=== PATIENT | male | born 1970 | race Caucasian/White ===

== ENCOUNTER 2024-09-13 07:52 | Outpatient (CLI) | payer OTHER, SELFPAY ==
--- OUTSIDE RECORDS SUMMARY | 2024-09-13 07:56 | XMS_ITS | Clinical Summary ---
Author Organization [facility] Address [address] [place] [address] Care Team Providers Care Chauffeur [place] Limousine Name Role Phone None, Provider MD Primary Care Provider Unavaila ble Allergies No known active allergies Medications guaiFENesin ER (MUCINEX) 600 MG 12 hr tablet Take 2 tablets (1,200 mg total) by mouth 2 (two) times daily. 28 tablet 06/01/2024 Active Active Problems No known active problems Immunizations Immunization Administration Dates Next Due MODERNA COVID-19 (12+) MRNA, LNP-S, PF, 100 MCG/ 0.5 ML DOSE 05/29/2020,05/01/2020 Social History Tobacco Use Types Packs/Day Years Used Date Smoking Tobacco: Never Smokeless Tobacco: Never Tobacco Cessation:Counseling Given: Not Answered Alcohol Use Standard Drinks/Week Comments Never 0 (1 standard drink = 0.6 oz pur e alcohol) Sex and Gender Information Value Date Recorded Sex Assigned at Male 06/01/2024 9:16 AM BOOK TRIMMER Legal Sex Male 5:45 PM CDT Gender Identity Not on file Sexual Orientation Not on file Last Filed Vital Signs Vital Sign Reading Time Taken Comments Blood Pressure 121/73 06/01/2024 9:27 AM BOOK TRIMMER Pulse 97 06/01/2024 9:27 AM BOOK TRIMMER Temperature 37.7 C (99.8 F) 06/01/2024 9:27 AM BOOK TRIMMER Respiratory Rate 20 06/01/2024 9:27 AM BOOK TRIMMER Oxygen Saturation 100% 06/01/2024 9:27 AM BOOK TRIMMER Inhaled Oxygen Concentration - - Weight 104.3 kg (230 lb) 06/01/2024 9:27 AM BOOK TRIMMER Height 182.9 cm (6') 06/01/2024 9:27 AM BOOK TRIMMER Body Mass Index 31.19 06/01/2024 9:27 AM BOOK TRIMMER Plan of Treatment Health Maintenance Due Date Last Done Comments Colorectal Cancer Screening Colonoscopy (10 Years) 1968 Annual Physical 1971 Hepatitis C 1986 Hepatitis B Vaccines (1 of 3 - 19+ 3-dose series) 1987 Pneumococcal Vaccine: 50+ Years (1 of 1 - PCV) 2018 Zoster Vaccines (2 of 3) 07/24/2020 021, 05/01/2020, 04/26/2020, Additional history exists COVID-19 Vaccine (3 - 2023- season) 2023 05/29/2020, 05/01/2020 DTaP, Tdap and Td Vaccines (3 - Td or Tdap) 04/25/2030 04/25/2020, 07/03/2018 Meningococcal B Vaccine Aged Out No l onger eligible based on patient's age to complete this topic Meningococcal Vaccine Aged Out No clary laurie eligible based on patient's age to complete this topic RSV Immunizations Under 20 Months Aged Out No longer eligible based on patient's age to complete this topic Insurance [facility] Care Teams Chauffeur [employer] Limousine Relationship Specialty Start Date End Date None, Provider, PCP - General 12/27/20
--- OUTSIDE RECORDS SUMMARY | 2024-09-13 07:56 | XMS_ITS | Clinical Summary ---
Author Organization [facility] Address [facility] [place] [address] Care Team Providers Care Sales Engineer Name Role Phone Regan Mina Unavailable [phone] Regan Mina Primary Care Provider Allergies Active Allergy Reactions Criticality Noted Date Comments Shellfish Containing Products Hives,Swelling Medium Medications oxyCODONE (ROXICODONE) 5 mg immediate release tabletIndicatio ns:Pain Take 1-2 tablets (5-10 mg total) by mouth every 4 (four) hours as needed for pain 50 tablet 4 Active Additional Information Patient not taking.Reported on 07/31/2023 naloxone (NARCAN) 4 mg/actuation spray,non-aeros ol Administer 1 spray into affected nostril(s) as needed for opioid reversal or respiratory depression Call 911. Administer a single spray in one nostril. Repeat every 3 minutes as needed if no or minimal response. 1 each 4 Active Additional Information Patient not taking.Reported on 05/19/2023 traMADoL (ULTRAM) 50 mg tablet Take 1 tablet (50 mg total) by mouth every 6 (six) hours as needed for pain 50 tablet 4 Active Additional Information Patient not taking.Reported on 05/19/2023 HYDROcodone-jacinto taminophen (NORCO) 7.5-325 mg per tabletIndicatio ns:Pain Take 1-2 tablets every 6 hours as needed for pain 60 tablet 4 Active Additional Information Patient not taking.Reported on 06/19/2023 meloxicam (MOBIC) 15 mg tabletIndicatio ns:Chronic left shoulder pain TAKE 1 TABLET (15 MG TOTAL) BY MOUTH DAILY. 30 tablet 1 4 Active Additional Information Patient not taking.Reported on 06/19/2023 HYDROcodone-jacinto taminophen (NORCO) 5-325 mg per tabletIndicatio ns:Pain Take 1 tablets every 8 hours as needed for pain 40 tablet 4 Active Additional Information Patient not taking.Reported on 07/31/2023 HYDROcodone-jacinto taminophen (NORCO) 5-325 mg per tabletIndicatio ns:Pain Take 1 tablets every 6 hours as needed for pain 30 tablet 4 Active Additional Information Patient not taking.Reported on 09/03/2023 methylPREDNISol one (Medrol, Alessandro,) 4 mg Dosepack Take as directed on package 1 packet 4 Active Active Problems Problem Noted Date Diagnosed Date Left hand pain 02/29/2024 Chronic left shoulder pain 04/13/2023 Nontraumatic incomplete tear of left rotator cuf f 04/13/2023 Liver lesion 06/26/2022 Assessment & Plan (06/26/2022 3:35 PM FIBER ARTIST): Incidental finding on CT scan will get MRI as recommended GI bleed due to NSAIDs 06/12/2022 Assessment & Plan (06/26/2022 3:35 PM FIBER ARTIST): No anti-inflammatories continue Protonix Melena 06/12/2022 Overview (06/12/2022): Added automatically from request for surgery [id number] Left hip pain 02/07/2022 Assessment & Plan (02/07/2022 4:25 PM CDT): - suspect strain to hip flexors but will check xray - ref to PT and ortho for eval - home PT, ice, NSAIDS Other male erectile dysfunction 05/30/2021 Assessment & Plan (09/02/2022 12:01 PM CDT): Currently not an issue Assessment & Plan (06/26/2022 3:34 PM FIBER ARTIST): Patient is currently not treating his is going through cancer Assessment & Plan (03/10/2022 2:52 PM FIBER ARTIST): As needed meds Assessment & Plan (05/30/2021 8:23 AM FIBER ARTIST): Viagra, discussed medications, use and side effects Hematuria 01/26/2018 Encounter for general adult medical examination with abnormal findings 01/26/2018 Assessment & Plan (03/10/2022 2:52 PM FIBER ARTIST): HEALTHCARE MAINTENANCE updated Assessment & Plan (05/30/2021 8:22 AM FIBER ARTIST): Healthcare maintenance updated Adult general medical exam 01/25/2018 Assessment & Plan (01/19/2020 2:41 PM CDT): HEALTHCARE MAINTENANCE updated, immunizations discussed Elevated glucose 01/25/2018 Assessment & Plan (05/30/2021 8:22 AM FIBER ARTIST): Healthy diet and exercise Assessment & Plan (02/14/2020 7:20 AM CDT): This has improved, will follow Assessment & Plan (01/19/2020 2:42 PM CDT): Diet and exercise Mixed hyperlipidemia 01/25/2018 Assessment & Plan (09/02/2022 12:01 PM CDT): Healthy diet exercise and weight reduction Assessment & Plan (06/26/2022 3:34 PM FIBER ARTIST): This is currently diet controlled will get labs at annual physical Assessment & Plan (03/10/2022 2:52 PM FIBER ARTIST): Getting labs Assessment & Plan (05/30/2021 8:23 AM FIBER ARTIST): Healthy diet and exercise Assessment & Plan (02/14/2020 7:21 AM CDT): This is very mild, were going to work on diet and exercise, recheck at next visit in 6 months Assessment & Plan (01/19/2020 2:42 PM CDT): Diet and exercise Fatigue 01/25/2018 Assessment & Plan (06/26/2022 3:34 PM FIBER ARTIST): Suspect this will improve with correction of anemia Assessment & Plan (02/14/2020 7:21 AM CDT): Despite his blood test patient is convinced his issues have to do with his testosterone level he is going to see the [facility] and will keep me posted Weight gain 01/25/2018 Blurred vision 08/26/2017 Dermatochalasis of eyelids of both eyes 08/27/19 18 Bilateral carpal tunnel syndrome 07/02/2016 Wrist pain 07/02/2016 Median nerve entrapment 06/20/2016 Paresthesia of right leg 06/20/2016 Anemia Assessment & Plan (09/02/2022 12:02 PM CDT): Patient was hospitalized in May for 2 GI bleeds is still iron deficiency anemic but his hemoglobin is going up his iron is going down he has been taking [id number] iron his provider at [facility] recommends iron infusion. I recommended we start with prescription iron and recheck labs in 6 weeks he declines this and wants a consult to see a histologist for an iron infusion. Assessment & Plan (06/26/2022 3:34 PM FIBER ARTIST): Secondary to GI bleed continue current medicine in iron did have a slight improvement we will repeat labs in 4 weeks COVID Resolved Problems Problem Noted Date Diagnosed Date Resolved Date Hypogonadism in male 01/19/2020 020 Assessment & Plan (09/02/2022 12:01 PM CDT): Patient is followed by [facility] Assessment & Plan (06/26/2022 3:34 PM FIBER ARTIST): Continue current treatment and follow-up Assessment & Plan (03/10/2022 2:52 PM FIBER ARTIST): Getting labs Immunizations Immunization Administration Dates Next Due Influenza, Unspecified 03/10/2022(Deferr ed: Patient Refused),03/05/2022(Deferred: Patient decision) Tdap 07/03/2018 Surgical History Surgery Date Site/Laterality Comments ANTERIOR CRUCIATE LIGAMENT REPAIR 04/27/19 20 - 04/26/2020 Right With MCL repair ESOPHAGOGASTRODUODENOSCOPY 05/28/2022 - 06/24/2022 HIP SURGERY 04/27/2022 - 05/27/2022 Left I don't know what they did. Bone graft. Medical History Medical History Date Comments HLD (hyperlipidemia) Anemia History of GI bleed 05/2022 PONV (postoperative nausea and vomiting) Family History Medical History Relation Name Comments Pancreatic cancer Father No Known Problems Mother Relation Name Status Comments Father Mother Alive Social History Tobacco Use Types Packs/Day Years Used Date Smoking Tobacco: Former Cigarettes 0 04/27/1993 - 04/27/2008 Passive Smoke Exposure: Never Tobacco Cessation:Counseling Given: Not Answered Alcohol Use Standard Drinks/Week Comments Not Currently 0 (1 standard drink = 0.6 oz pur e alcohol) AUDIT-C Answer Date Recorded Q1: How often do you have a drink containing alc ohol? 2-4 times a month 05/08/2023 Q2: How many drinks containi ng alcohol do you have on a typical day when you are drinking? 1 or 2 05/08/2023 Q3: How often do you have si x or more drinks on one occasion? Never 05/08/2023 PHQ-2 Answer Date Recorded PHQ-2 Total Score (If total score is 3 or more points, staff should administer the PHQ-9) 0 06/26/2022 Personal Safety Answer Date Recorded Have you ever been in or are you currently in a harmful physical or emotional relationship or is someone making you feel afraid or unsafe? Denies 05/08/2023 Sex and Gender Information Value Date Recorded Sex Assigned at Not on file Legal Sex Male 8:32 PM FIBER ARTIST Gender Identity Not on file Sexual Orientation Not on file Occupation Industry Job Start Date Job End Date construction Not on file Not on file Not on file Obstetrics History Last Filed Vital Signs Vital Sign Reading Time Taken Comments Blood Pressure 130/78 05/08/2023 4:50 PM FIBER ARTIST Pulse 86 05/08/2023 4:50 PM FIBER ARTIST Temperature 36.1 C (97 F) 05/08/2023 2:40 PM FIBER ARTIST Respiratory Rate 18 05/08/2023 4:50 PM FIBER ARTIST Oxygen Saturation 95% 05/08/2023 4:50 PM FIBER ARTIST Inhaled Oxygen Concentration - - Weight 110.2 kg (243 lb) 09/03/2023 3:36 PM CDT Height 182.9 cm (6') 09/03/2023 3:36 PM CDT Body Mass Index 32.96 09/03/2023 3:36 PM CDT Plan of Treatment Health Maintenance Due Date Last Done Comments Colon Cancer Screening-Colonoscopy 1968 Hepatitis C Screening 1968 Hepatitis B Screening 1986 Pneumococcal vaccine <65 (1 of 2 - PCV) 1987 Zoster Vaccine (1 of 2) 2018 Regular Well Visit/Exam 18-64 03/10/2023, 05/30/2021, 01/19/2020 Depression Screening 06/27/2023 06/26/2022, 05/30/2021, 01/19/2020 Covid-19 Vaccine (3 2023-2 5 season) 2023 05/29/2020, 05/01/2020 Influenza Vaccine (#1) 2023 Prostate Cancer Screening-PSA 03/17/2024, 02/03/2020, 01/20/2018, Additional history exists DTaP/Tdap/Td Vaccine (2 - Td or Tdap) 07/03/2028 07/03/2018 Medical Devices Implanted Type Area Chemistry Department Chair Device Identifier Shelf Expiration Date Model / Serial / Lot [employer] Swivelock C 4.75mm 19.1mm Closed Eyelet Vent [place] Suture Ar-2324bcc - [id number] Implanted:Qty: 1 on 05/08/2023 by Nickolas Hobbs MD at [facility] Left: Shoulder [employer] [id number] 01/24/2027 AR-2324BC C / / [id number] [employer] Swivelock C 5.5mm 19.1mm Closed Eyelet Vent [place] Suture Ar-2323bcc - [id number] Implanted:Qty: 1 on 05/08/2023 by Nickolas Hobbs MD at [facility] Left: Shoulder [employer] [id number] 04/26/2026 AR-2323BC C / / [id number] [employer] Flight Service Specialist Large Eyelet Pectoralis Button Fixation Latex Free Ar-2267 - [id number] Implanted:Qty: 1 on 05/08/2023 by Nickolas Hobbs MD at [facility] Left: Shoulder [employer] [id number] 07/25/2025 AR-2267 / / [id number] 2 Procedures Procedure Name Priority Date/Time Associated Diagnosis Comments PSA SCREEN Routine 03/17/2022 6:37 AM FIBER ARTIST Hypogonadism in male from Last 3 Months or Most Recently Relevant to Health Maintenance Results * PSA screen (03/17/2022 6:37 AM FIBER ARTIST) PSA-Total 1.86 <=3.90 ng/mL PAUL GARCIAS Comment: Interpretive Data AGE SEX REFERENCE INTERVAL 0 minutes-150 years Female None 0 minutes-49 years Male None 50-59 years Male 0-3.90 60-69 years Male 0-5.40 70-79 years Male 0-6.20 80-150 years Male 0-6.20 The Pat PSA Total assay procedure was used. Results from different manufacturers or methods may not be comparable. Serial testing should be performed using the same method. Current interpretive data last revised 21. Blood 03/17/2022 6:37 AM FIBER ARTIST 03/17/2022 7:33 AM FIBER ARTIST us Regan MORLEY LAB BLOOD ORDERABLES Final Resu lt PAUL [address] [facility] [place] [address] from Last 3 Months or Most Recently Relevant to Health Maintenance Insurance [facility] CHOICE PLUS [facility] Advance Directives For more information, please contact: [phone] * Full Code (Latest Code Status on File) Date Activated Date Inactivated Comments 06/12/2022 3:42 PM 06/14/2022 2:55 PM * Full Code Date Activated Date Inactivated Comments 06/12/2022 1:56 PM 06/12/2022 3:42 PM Care Teams Sales Engineer Relationship Specialty Start Date End Date Regan Mina PA PCP - General Family Medicine 06/20/22 Regan Mina PA 04/10/22
--- OUTSIDE RECORDS SUMMARY | 2024-09-13 07:56 | XMS_ITS | Referral Summary ---
Author Organization [facility] Address [facility] [place] [address] Care Team Providers Care Furnace Combination Analyst Name Role Phone Regan Mina Unavailable [phone] Regan Mina Primary Care Provider [phone] Allergies Active Allergy Reactions Criticality Noted Date [...] 06/26/2022 Assessment & Plan (06/26/2022 3:35 PM MAINTENANCE MECHANIC SUPERVISOR): Incidental finding on CT scan will get MRI as recommended GI bleed due to NSAIDs 06/12/2022 Assessment & Plan (06/26/2022 3:35 PM MAINTENANCE MECHANIC SUPERVISOR): No anti-inflammatories continue Protonix Melena 06/12/2022 Overview (06/12/2022): Added automatically from request for surgery [id number] Left hip pain 02/07/2022 Assessment & Plan (02/07/2022 4:25 PM CDT): - suspect strain to hip flexors but will check xray - ref to PT and ortho for eval - home PT, ice, NSAIDS Other male erectile dysfunction 05/30/2021 Assessment & Plan (09/02/2022 12:01 PM CDT): Currently not an issue Assessment & Plan (06/26/2022 3:34 PM MAINTENANCE MECHANIC SUPERVISOR): Patient is currently not treating his is going through cancer Assessment & Plan (03/10/2022 2:52 PM MAINTENANCE MECHANIC SUPERVISOR): As needed meds Assessment & Plan (05/30/2021 8:23 AM MAINTENANCE MECHANIC SUPERVISOR): Viagra, discussed medications, use and side effects Hematuria 01/26/2018 Encounter for general adult medical examination with abnormal findings 01/26/2018 Assessment & Plan (03/10/2022 2:52 PM MAINTENANCE MECHANIC SUPERVISOR): HEALTHCARE MAINTENANCE updated Assessment & Plan (05/30/2021 8:22 AM MAINTENANCE MECHANIC SUPERVISOR): Healthcare maintenance updated Adult general medical exam 01/25/2018 Assessment & Plan (01/19/2020 2:41 PM CDT): HEALTHCARE MAINTENANCE updated, immunizations discussed Elevated glucose 01/25/2018 Assessment & Plan (05/30/2021 8:22 AM MAINTENANCE MECHANIC SUPERVISOR): Healthy diet and exercise Assessment & Plan (02/14/2020 7:20 AM CDT): This has improved, will follow Assessment & Plan (01/19/2020 2:42 PM CDT): Diet and exercise Mixed hyperlipidemia 01/25/2018 Assessment & Plan (09/02/2022 12:01 PM CDT): Healthy diet exercise and weight reduction Assessment & Plan (06/26/2022 3:34 PM MAINTENANCE MECHANIC SUPERVISOR): This is currently diet controlled will get labs at annual physical Assessment & Plan (03/10/2022 2:52 PM MAINTENANCE MECHANIC SUPERVISOR): Getting labs Assessment & Plan (05/30/2021 8:23 AM MAINTENANCE MECHANIC SUPERVISOR): Healthy diet and exercise Assessment & Plan (02/14/2020 7:21 AM CDT): This is very mild, were going to work on diet and exercise, recheck at next visit in 6 months Assessment & Plan (01/19/2020 2:42 PM CDT): Diet and exercise Fatigue 01/25/2018 Assessment & Plan (06/26/2022 3:34 PM MAINTENANCE MECHANIC SUPERVISOR): Suspect this will improve with correction of anemia Assessment & Plan (02/14/2020 7:21 AM CDT): Despite his blood test patient is convinced his issues have to do with his testosterone level he is going to see the [facility] and will keep me posted Weight [...] is going down he has been taking [id number] [facility]. I recommended we start with prescription iron and recheck labs in 6 weeks he declines this and wants a consult to see a pattern setter for an iron infusion. Assessment & Plan (06/26/2022 3:34 PM MAINTENANCE MECHANIC SUPERVISOR): Secondary to GI bleed continue current medicine in iron did have a slight improvement we will repeat labs in 4 weeks COVID Resolved Problems Problem Noted Date Diagnosed Date Resolved Date Hypogonadism in male 01/19/2020 020 Assessment & Plan (09/02/2022 12:01 PM CDT): [facility] Assessment & Plan (06/26/2022 3:34 PM MAINTENANCE MECHANIC SUPERVISOR): Continue current treatment and follow-up Assessment & Plan (03/10/2022 2:52 PM MAINTENANCE MECHANIC SUPERVISOR): Getting labs Immunizations Immunization Administration Dates Next Due Influenza, Unspecified 03/10/2022(Deferr ed: Patient Refused),03/05/2022(Deferred: Patient decision) Tdap 07/03/2018 Social History Tobacco Use Types Packs/Day Years [...] on file Legal Sex Male 8:32 PM MAINTENANCE MECHANIC SUPERVISOR Gender Identity Not on file Sexual Orientation Not on file Occupation Industry Job Start Date Job End Date construction Not on file Not on file Not on file Last Filed Vital Signs Vital Sign Reading Time Taken Comments Blood Pressure 130/78 05/08/2023 4:50 PM MAINTENANCE MECHANIC SUPERVISOR Pulse 86 05/08/2023 4:50 PM MAINTENANCE MECHANIC SUPERVISOR Temperature 36.1 C (97 F) 05/08/2023 2:40 PM MAINTENANCE MECHANIC SUPERVISOR Respiratory Rate 18 05/08/2023 4:50 PM MAINTENANCE MECHANIC SUPERVISOR Oxygen Saturation 95% 05/08/2023 4:50 PM MAINTENANCE MECHANIC SUPERVISOR Inhaled Oxygen Concentration - - Weight 110.2 kg (243 lb) 09/03/2023 3:36 PM CDT Height 182.9 cm (6') 09/03/2023 3:36 PM CDT Body Mass Index 32.96 09/03/2023 3:36 PM CDT Plan of Treatment Not on file Medical Devices Implanted Type Area Supervisor Pullet Farm Device Identifier Shelf Expiration Date Model / Serial / Lot [employer] Swivelock C 4.75mm 19.1mm Closed Eyelet Vent [place] Suture Ar-2324bcc - [id number] Implanted:Qty: 1 on 05/08/2023 by Nickolas Hobbs MD at [facility] Left: Shoulder [employer] [id number] 01/24/2027 AR-2324BC C / / [id number] [employer] Swivelock C 5.5mm 19.1mm Closed Eyelet Vent [place] Suture Ar-2323bcc - [id number] Implanted:Qty: 1 on 05/08/2023 by Nickolas Hobbs MD at [facility] Left: Shoulder [employer] [id number] 04/26/2026 AR-2323BC C / / [id number] [employer] Grain Cleaner Large Eyelet Pectoralis Button Fixation Latex Free Ar-2267 - [id number] Implanted:Qty: 1 on 05/08/2023 by Nickolas Hobbs MD at [facility] Left: Shoulder [employer] [id number] 07/25/2025 AR-2267 / / [id number] 2 Procedures Procedure Name Priority Date/Time Associated Diagnosis Comments PSA SCREEN Routine 03/17/2022 6:37 AM MAINTENANCE MECHANIC SUPERVISOR Hypogonadism in male from Last 3 Months or Most Recently Relevant to Health Maintenance Results * PSA screen (03/17/2022 6:37 AM MAINTENANCE MECHANIC SUPERVISOR) PSA-Total 1.86 <=3.90 ng/mL PAUL Comment: Interpretive Data AGE SEX REFERENCE INTERVAL [...] last revised 21. Blood 03/17/2022 6:37 AM MAINTENANCE MECHANIC SUPERVISOR 03/17/2022 7:33 AM MAINTENANCE MECHANIC SUPERVISOR Regan MORLEY LAB BLOOD ORDERABLES Final Resu lt [facility] [address] [facility] Department [place] [address] from Last 3 Months or Most Recently Relevant to Health Maintenance Insurance [facility] CHOICE PLUS [facility] HEALTHCARE HMO [facility] HMO Advance Directives For more information, please contact: [phone] * Full Code (Latest Code Status on File) Date Activated Date Inactivated Comments 06/12/2022 3:42 PM 06/14/2022 2:55 PM * Full Code Date Activated Date Inactivated Comments 06/12/2022 1:56 PM 06/12/2022 3:42 PM Care Teams Furnace Combination Analyst Relationship Specialty Start Date End Date Regan Mina PA PCP - General Family Medicine 06/20/22 Regan Mina PA 04/10/22
--- OUTSIDE RECORDS SUMMARY | 2024-09-13 07:56 | XMS_ITS | Encounter Summary ---
Author Organization [facility] Address [address] [place] [id number] Care Team Providers Care Electron Tube Assembler Name Role Phone Regan Mina PA-C Primary Care Provider [phone] None, Provider Primary Care Provider Unavaila ble Encounter Details Date Type Department Care Team (Late st Contact Info) Description 02/28/2017 Abstract [facility] [place], [place] [address] , Generic Conversion, Social History Tobacco Use Types Packs/Day Years Used Date Smoking Tobacco: Never Assessed Sex and Gender Information Value Date Recorded Sex Assigned at Male 06/01/2024 9:16 AM RADIO TECHNICIAN Legal Sex Male 5:45 PM CDT Gender Identity Not on file Sexual Orientation Not on file documented as of this encounter Plan of Treatment Not on file documented as of this encounter Visit Diagnoses Not on filedocumented in this encounter Additional Health Concerns Infection Onset Date Last Indicated Resolved Time COVID-19 Rule Out 06/01/2024 06/01/2024 06/01/2024 9:53 AM RADIO TECHNICIAN documented as of this encounter Care Teams Electron Tube Assembler Relationship Specialty Start Date End Date Regan Mina PA-C PCP - General 07/10/14 12/26/20 None, ProviderMD PCP - General 12/27/20 documented as of this encounter
--- OUTSIDE RECORDS SUMMARY | 2024-09-13 07:56 | XMS_ITS | Continuity of Care Document ---
Author Organization [facility] Address [address] [place] [address] Phone Care Team Providers Care Senior Compliance Analyst Name Role Phone Maude Connell MD Unavailable Unavailable Allergies, Adverse Reactions, Alerts Substance Reaction Status Criticality No Known Allergies Active No Inform ation Medications Medication Instructions Dosage Effective Dates (start - stop) Status Comments cyclobenzaprine 10 mg tablet take 1 tablet by oral route 3 times every day as needed 10 MG - Active hydrocodone 7.5 mg-acetaminophen 325 mg tablet take 1 tablet by oral route every 6 hours as needed for pain 1.00 tablet - Active tramadol 50 mg tablet take 1 tablet by oral route every 12 hours as needed 50 MG - Active Procedures Procedure Date OFFICE [id number] KENALOG 10 MG ASP/INJ MAJOR JOINTOR BURSA, SHOULDER, H IP,KNEE W/O US GUIDANCE OFFICE [id number] Xray Exam, Hip, Unilat, Two Or Three Vie ws POSTOPERATIVE FOLLOW-UP VISIT, INCLUDED IN GLOBAL SERVICE POSTOPERATIVE FOLLOW-UP VISIT, INCLUDED IN GLOBAL SERVICE POSTOPERATIVE FOLLOW-UP VISIT, INCLUDED IN GLOBAL SERVICE POSTOPERATIVE FOLLOW-UP VISIT, INCLUDED IN GLOBAL SERVICE CORE DECOMPRESSION, HIP, W/BONE GRAFTING OFFICE [id number] Advance Directives Directive Yes / No Effective Date File Name No Information Encounters Encounter Description Practice Location Reason(s) For Visit Diagnoses Date Provider Providers Copied on Encounter [facility], [address], [place], [place], [id number], [place] tel:[phone] [facility] No Information [facility]. [address], [place], [place], [address] , . tel: [phone] OFFICE [id number] ANDED [facility], [address], [place], [place], [address], [place] tel:[phone] [facility] shoulder (chief complaint)h ip (chief complaint) Tendinitis of left rotator cuffAvascular necrosis of hip, left [facility]. [address], [place], [place], [address] , . tel: [phone] Referring Provider: Maude Connell, [address], [place], [address] . tel:[phone] OFFICE [id number] ANDED [facility], [address], [place], [place], [address], [place] tel:[phone] [facility] shoulder (chief complaint) Tendinitis of left rotator cuff [facility]. [address], [place], [place], [address] , . tel: [phone] Referring Provider: Maude Connell, [address], [place], [address] . tel:[phone] [facility], [address], [place], [place], [address], [place] tel:[phone] [facility] hip (chief complaint) Avascular necrosis of hip, left [facility]. [address], [place], [place], [address] , . tel:[phone] Referring Provider: Maude Connell, [address], [place], [address] . tel:[phone] [facility], [address], [place], [place], [address], tel:[phone] [facility] No Information [facility]. [address], [place], [place], [id number] , . tel:[phone] [facility], [address], [place], [place], [address], tel:[phone] [facility] No Information [facility]. [address], [place], [place], [address] , [place]. tel:[phone] [facility], [address], [place], [place], [address], tel:[phone] [facility] hip (chief complaint) Avascular necrosis of hip, left [facility]. [address], [place], [place], [address] , [place]. tel: [phone] Referring Provider: Maude Connell, [address], [place], [address] . tel:[phone] [facility], [address], [place], [place], [address], tel:[phone] [facility] No Information [facility]. [address], [place], [place], [address] , . tel:[phone] Referring Provider: Maude Connell, [address], [place], [address] . tel:[phone] OFFICE [id number] GIUSEPPE [facility], [address], [place], [place], [id number], tel:[phone] [facility] hip (chief complaint) Avascular necrosis of hip, left [facility]. [address], [place], [place], [address] , . tel: [phone] Referring Provider: Maude Connell, [address], [place], [address] . tel:[phone] Family History Family Member Type Diagnosis Age At Onset No Information Payers Payer name Insurance type Covered democrat ID Paul finch(s) [facility] [id number] Social History Type Description Quantity Date Captured Comments Alcohol Use Details Unknown Caffeine Use Details Unknown Tobacco Use Status No Information Smoking Status No Information Sex Male Sexual Orientation Straight or heterosexual Gender Identity Male Chief Complaint And Reason For Visit No Information Reason For Referral Reason For Referral No Information Plan Of Treatment Date Type Action Status Referral Ordered: Xray Exam, Hip, Unilat, Two Or Three Views Left Left ordered History Of Present Illness Encounter Date Complaint History Of Prese nt Illness shoulder hx left rc tendo nitis helped by injection and with recent mild left shoulder aching without weakness plan inj given left shoulder fu as needed hip hx left hip core decompression and pain freee doing great plan continue full activity fu as needed shoulder left hip doing w ell and here for exam and eval left shoulder aching pain wiht exercises xrsy neg mri rc tendonitis without tear plan inj given non surgical rx hip 6 weeks postop l eft hip core decompression and feeling much better with little pain recent gi bleed now resolved xrys left hip healing plan continue full wb low impact 4 more weeks fu check october hip first post op le ft hip core decompression and bone grafting for avn and doing very well with minimal pain and good early function plan fu 1 month for exam and xray continue protected activity hip here for exam an d eval 2 years left hip and groin pain and stiffness xrys neg mjri stage 1-2 avn left hip plan reivewed findingns and options pt understands and wishes surgical decompresison drilling and bone grafting will schedule Functional Status Date Functional Assessmen t No Information Instructions Date Instruction Additional Infor mation painless full rom left hip Relat ed to Avascular necrosis of hip, left inj given fu as needed Related t o Tendinitis of left rotator cuff Disease process inj given left shoulder Related to Tendinitis of left rotator cuff Disease process doing well postop dr chester and graft fu october Related to Avascular necrosis of hip, left Disease process postop left hip and progressing well fu 1 month for xry left hip Related to Avascular necrosis of hip, left Disease process avn left hip stage 2 with some pain limp and symptoms plan decompression drilling and bone grafting left hip Related to Avascular necrosis of hip, left Disease process Assessments Type Assessment Date No Information Patient Care Teams Name Effective Dates (start - stop) Status Members No Information
--- NOTE | 2024-10-03 22:28 | P.SLEEP_ITS ---
Sleep Study Date of Study: 09/13/24 Ordering Provider: Maria Isabel Morrissey DO Interpreting Physician: Lamar Best MD Sleep Study Type: Polysomnogram Height: 1.8 m Weight: 111.13 kg Body Mass Index: 34.2 Neck Circumference (inches): 18 [place]: 24 Reason for Sleep Study Hypersomnolence, extremely fatigued every day Sleep History Pavel Rosales is a 54-year-old man with severe obstructive sleep apnea diagnosed at an in-lab location when he was tested at [place] sinus, sleep and allergy 7 years ago. He refused CPAP at the time. He is interested in being re-evaluated and would like to consider Inspire hypoglossal nerve stimulator as an option. He has tried sleep aids but these have not worked. He occasionally awakens from sleep feeling short of breath. He rarely wakes at night with heartburn, belching or coughing.??He frequently snores, frequently snores loudly enough that others complain. He constantly has trouble sleeping when he has a cold. He rarely wakes up gasping for breath during the night. He constantly has breathing problems at night. He rarely sweats excessively at night. He constantly notices his heart pounding or beating irregularly during the night. He frequently falls asleep during the day. He occasionally falls asleep involuntarily, never falls asleep while driving. He occasionally experiences loss of muscle tone with strong emotion. He frequently has daytime difficulty at work due to excessive sleepiness. He rarely feels paralyzed on waking or falling asleep. He occasionally experiences vivid dreams upon waking or falling asleep. He never feels afraid of going to sleep. He rarely has nightmares. He occasionally recalls his dreams. He frequently has thoughts racing through his mind. He never feels sad or depressed. He rarely feels anxiety. He rarely notices parts of his body jerk. He occasionally kicks during the night. He occasionally feels crawling or aching feelings in his legs. He rarely feels leg pain at night. He never has morning jaw pain, never grinds his teeth at night. He rarely feels bothered by pain during the day, occasionally awakened by pain during the night. He frequently wakes up feeling stiff in the morning, and he frequently wakes feeling sore or achy. He rarely awakens with pain in his neck, spine, or joints. He has memory problems, concentration difficulties and fatigue Normal bedtime is between 8:30 p.m. and 9:30 p.m.,, falling asleep sometimes more quickly than at other times. He wakes up multiple times during the night, anywhere between 6 and 10 awakenings for various reasons. He often tries to reposition himself and get back to sleep. He wakes at 4:30 a.m. on work days. On weekends, bedtime is between 10:00 p.m. and 11:00 p.m., and he wakes by 6:30 a.m.. He estimates getting between 4 hours and 6 hours of sleep at night. He takes naps in the day, and sometimes feels refreshed afterwards. Habits:??Tobacco: Never smoker Caffeine: 3 cups per day Alcohol: none Recreational substances: none PMFSH Past Medical History Medical History (Updated 10/03/24 @ 22:35 by Lamar Best MD) EDY (obstructive sleep apnea) Insomnia Sleep disorder Hyperlipidemia Long-term current use of testosterone cypionate Anxiety Surgical History Surgical History History of hip surgery (~04/2022) Social History Social History Smoking status: Former smoker Alcohol intake: current Substance use type: does not use Do You Feel Safe in your Home?: Yes Lack of Transportation: No Lack of Food: Never True Current Housing: Decline to Answer Concerned About Future Housing: Decline to Answer Difficulty Paying Gas/Electric Bills: Decline to Answer Difficulty Paying for Meds: Decline to Answer Currently Unemployed: Decline to Answer Education: Decline to Answer Difficulty w/ Childcare or Family Care: Decline to Answer Medications Home Medications ?Medication ?Instructions ?Recorded ?Confirmed ?Type sildenafil 100 mg tablet 100 mg PO DAILY PRN sexual 02/11/24 08/18/24 Rx activity #30 tabs needle (disp) 18 G 18 gauge x 1 #100 ea 04/12/24 08/18/24 Rx (BD Regular [place]vel [place]) syringe with needle 3 mL 23 x 1 #100 ea 04/12/24 08/18/24 Rx (BD Eclipse Luer-Axel) testosterone cypionate 200 mg/mL 80 mg (0.4 mL) IM .3x/week #10 mL 08/15/24 08/18/24 Rx intramuscular oil hydroxyzine HCl 50 mg tablet 50 mg PO QHS PRN insomnia #2 tabs 09/12/24 Rx Sleep Procedure A full night polysomnogram using the [employer] multi-channel system recorded the standard physiologic parameters including EEG, EOG, submentalis EMG, anterior tibialis EMG, EKG, body position, nasal and oral airflow using nasal pressure sensor and thermistor. Respiratory parameters of chest and ab dominal movements were recorded with Respiratory Inductance Plethysmography belts. Oxygen saturation was recorded by pulse oximetry. Video monitoring was also performed. Sleep stages, periodic limb movements, and EEG arousals were scored in 30 second epochs according to the criteria of the AASM Scoring Manual. The Apnea-Hypopnea Index was calculated using [facility] guidelines for definition of hypopnea while scoring respiratory events. He self-administered Benadryl at the beginning of the study. Sleep Architecture The total recording time was 398.4 minutes. The total sleep time was 361.0 minutes. Sleep latency was 0.4 minutes. REM latency was 94.0 minutes. Sleep efficiency was 90.6%. The patient had 49 awakenings for an awakening index of 8.1. Wake after sleep onset time was 36.5 minutes. The patient spent 45.5 minutes, 12.6% of total sleep time in Stage N1. The patient spent 227.5 minutes, 63.0% in Stage N2. The patient spent 52.0 minutes, 14.4% in Stage N3. The patient spent 36.0 minutes, 10.0% in Stage REM sleep. Respiratory Analysis The patient had 149 hypopneas, 31 obstructive apneas, 5 mixed apneas, and 10 central apneas for an overall Apnea Hypopnea Index of 32.1. The REM Apnea Hypopnea Index was 35.0. The NREM Apnea Hypopnea Index was 31.8. The patient had a Central Apnea Hypopnea Index of 1.7. There were no Respiratory Effort Related Arousals. The Respiratory Disturbance Index is 33.1 events per hour. There was no evidence of Felipe-Hobbs Respirations. Arousals There were 163 total arousals for an arousal index of 27.1. There were 113 spontaneous arousals for an index of 18.8. There were 47 arousals due to respiratory events for an index of 7.8. There were no arousals due to periodic limb movements. There were 3 arousals due to isolated limb movements for an index of 0.5. Periodic Limb Movements The patient had 3 isolated limb movements with an index of 0.5. The patient had no periodic limb movements. Patient had a total of 3 limb movements with a total limb movement index of 0.5. Oximetry Data The patient had an average oxygen saturation of 90.7% in sleep with a minimum oxygen saturation of 75% and a maximum oxygen saturation of 98%. The patient had 205 oxygen desaturations that were 4% or greater resulting in an Oxygen Desaturation Index of 34.1. The patient spent 69.9 minutes, 17.6% of total sleep time with an oxygen saturation below 88%. Snoring Profile Snoring was intermittent. Cardiac Profile The EKG showed normal sinus rhythm, average pulse rate of 72.7 bpm with a minimum pulse of rate of 57 bpm and a maximum pulse rate of 90 bpm. No arrhythmias noted. EEG Profile Unremarkable, no evidence of seizures. Assessment and Plan Assessment and Plan (1) EDY (obstructive sleep apnea): Code(s): G47.33 - Obstructive sleep apnea (adult) (pediatric) Status: Acute Assessment and Plan: This basic nocturnal polysomnogram on 09/13/2024 shows severe obstructive sleep apnea, the apnea-hypopnea index is 32.1 using a 4% criteria, desaturation to 75% with 69.9 minutes, 17.6% the study spent below 88%. Events were significantly worse in the supine position. The supine apnea-hypopnea index is 68.5, non supine index is 22. He had a low central apnea index of 1.7. He is interested in Inspire, a hypoglossal nerve stimulator as an alternative to CPAP. At this time, due to the severity of his obstructive sleep apnea and hypoxemia, the best recommendation is for him to have a dedicated CPAP titration in the sleep lab. Auto PAP is not recommended. This is due to the prolonged period of time that he spent below 88% saturation. Consider a sleep aid such as Lunesta 2-3 mg to initiate and maintain sleep during the PAP titration. He should not nap on the day of the titration. BMI is 34. Weight management is advised. Clinical data suggests that weight loss of 10% can reduce the severity of respiratory events and snoring and improve AHI by as much as 25%. Data The data obtained during this sleep study is adequate for interpretation. Certification This sleep study has been reviewed by a board certified sleep medicine physician.
[2024-10-04 13:48] VITALS: BMI 34.2
== END 2024-09-14 06:18 | disposition home or self-care (01) ==
PROVIDERS: PCP Internal Medicine; Visit Provider Family Medicine
DX: G47.33 Obstructive sleep apnea (adult) (pediatric) (principal); G47.19 Other hypersomnia
CPT/HCPCS: 95810